=== PATIENT | male | born 1975 | race Caucasian/White ===

== ENCOUNTER 2018-07-06 05:32 | Emergency (ER) | payer SELFPAY ==
[~2018-07-06] VITALS: Ht 175.3 cm; Wt 72.6 kg
[2018-07-06] MEDS ORDERED: FAMOTIDINE 20 MG/2 ML ONE (06:25)
[2018-07-06] MEDS ORDERED: ONDANSETRON 2MG/ML, 2ML ONE (06:25)
[2018-07-06] MEDS ORDERED: ONDANSETRON ODT 4 MG ONE (06:25)
[2018-07-06] MEDS ORDERED: FAMOTIDINE 20 MG/2 ML IVP ONE (06:30)
[2018-07-06] MEDS ORDERED: ONDANSETRON 2MG/ML, 2ML IVPush ONE (06:30)
[2018-07-06] MEDS ORDERED: SODIUM CHLORIDE 0.9% 1,000ML IVBOLUS ONE (06:30)
[2018-07-06] MEDS ORDERED: SODIUM CHLORIDE FLUSH 10ML SYR IVF ONE (06:30)
[2018-07-06 06:48] LABS: ALBUMIN 4.1 g/dL (3.4-5.0); ANION GAP 8 mmol/L (5-15); CALCIUM 9.1 mg/dL (8.5-10.1); CHLORIDE 104 mmol/L (98-107)
[2018-07-06 06:52] LABS: ALANINE AMINOTRANSFERASE 20 U/L (12-78); ALKALINE PHOSPHATASE 82 U/L (45-117); BILIRUBIN,TOTAL 1.1 mg/dL (0.2-1.0); CREATININE 0.94 mg/dL (0.7-1.3); TOTAL PROTEIN 7.9 g/dL (6.4-8.2)
[2018-07-06 07:09] LABS: BASOPHILS # (AUTO) 0.14 x10^3/uL (0-0.1); BASOPHILS % (AUTO) 1 % (0-1); EOSINOPHILS # (AUTO) 0.03 x10^3/uL (0-0.4); EOSINOPHILS % (AUTO) 0 % (1-7); LYMPHOCYTES % (AUTO) 11 % (22-44); MD NO; MEAN CORPUSCULAR HEMOGLOBIN 31.5 pg (27.5-34.5); MEAN CORPUSCULAR VOLUME 92.7 fL (81-97); MEAN PLATELET VOLUME 8.4 fL (7.4-10.4); MONOCYTES # (AUTO) 0.51 x10^3/uL (0.2-0.8); MONOCYTES % (AUTO) 4 % (2-9); NEUTROPHILS # (AUTO) 9.62 x10^3/uL (1.8-6.8); NEUTROPHILS % (AUTO) 83 % (42-75); PLATELET COUNT 241 x10^3/uL (130-400); RED BLOOD COUNT 4.96 x10^6/uL (4.38-5.82); RED CELL DISTRIBUTION WIDTH 13.6 % (9.4-14.8)
[2018-07-06] MEDS ORDERED: PROMETHAZINE 25 MG/ML, 1ML ONE (07:40)
[2018-07-06] MEDS ORDERED: POTASSIUM CHLORIDE 20 MEQ TAB.ER.PRT PO ONE (08:00)
[2018-07-06] MEDS ORDERED: PROMETHAZINE 25 MG/ML, 1ML IM ONE (08:00)
[2018-07-06] MEDS ORDERED: POTASSIUM CHLORIDE 20 MEQ TAB.ER.PRT ONE (08:07)
[2018-07-06 08:09] VITALS: BP 144/93
[2018-07-06] MEDS ORDERED: ALUMINUM/MAG/SIMETHICONE 30 ML UDC ONE ×2 (08:10→08:14)
[2018-07-06] MEDS ORDERED: ALUMINUM/MAG/SIMETHICONE 30 ML UDC PO ONE (08:30)
== END 2018-07-06 08:50 | disposition home or self-care (01) ==
LOC: ED 08:45
DX: K52.9 Noninfective gastroenteritis and colitis, unspecified (principal); E87.6 Hypokalemia; R11.2 Nausea with vomiting, unspecified
CPT/HCPCS: 36415; 80053; 85025; 96361; 96372; 96374; 96375; 99284; J2405; J2550; J7030; S0028

== ENCOUNTER 2020-02-08 12:05 | Emergency (ER) | payer OTHER ==
[~2020-02-08] VITALS: Ht 175.3 cm; Wt 81.4 kg
[2020-02-08 13:02] VITALS: BP 118/74
[2020-02-08] MEDS ORDERED: HYDROcodone/APAP 5/325 TABLET PO ONE (14:00)
[2020-02-08] MEDS ORDERED: HYDROcodone/APAP 5/325 TABLET ONE (14:10)
[2020-02-08 14:21] LABS: BASOPHILS # (AUTO) 0.03 x10^3/uL (0-0.1); BASOPHILS % (AUTO) 0 % (0-1); EOSINOPHILS # (AUTO) 0.35 x10^3/uL (0-0.4); EOSINOPHILS % (AUTO) 5 % (1-7); LYMPHOCYTES # (AUTO) 1.82 x10^3/uL (1-3.4); LYMPHOCYTES % (AUTO) 24 % (22-44); MD NO; MEAN CORPUSCULAR HEMOGLOBIN 32.1 pg (27.5-34.5); MEAN CORPUSCULAR HGB CONC 33.9 g/dL (33.2-36.2); MEAN CORPUSCULAR VOLUME 94.8 fL (81-97); MEAN PLATELET VOLUME 7.7 fL (7.4-10.4); MONOCYTES % (AUTO) 7 % (2-9); NEUTROPHILS # (AUTO) 4.89 x10^3/uL (1.8-6.8); NEUTROPHILS % (AUTO) 65 % (42-75); PLATELET COUNT 224 x10^3/uL (130-400); RED BLOOD COUNT 4.79 x10^6/uL (4.38-5.82); RED CELL DISTRIBUTION WIDTH 13.8 % (9.4-14.8)
[2020-02-08 14:24] LABS: HCT (SEDRATE) 45.5 % (39.2-51.8)
--- NOTE | 2020-02-08 15:13 | NUR ---
PT IN MRI.
--- NOTE | 2020-02-08 16:41 | NUR ---
DEMONSTRATED PROPER USAGE OF CRUTCHES. VERBALIZED UNDERSTANDING OF DC INSTRUCTIONS.
== END 2020-02-08 17:07 | disposition home or self-care (01) ==
LOC: ED 17:01
DX: S39.012A Strain of muscle, fascia and tendon of lower back, initial encounter (principal); M51.36 Other intervertebral disc degeneration, lumbar region; G89.11 Acute pain due to trauma; M25.552 Pain in left hip; F17.200 Nicotine dependence, unspecified, uncomplicated; X58.XXXA Exposure to other specified factors, initial encounter; Y93.89 Activity, other specified; Y92.89 Other specified places as the place of occurrence of the external cause; Y99.8 Other external cause status
CPT/HCPCS: 36415; 85025; 85651; 99284